=== PATIENT | female | born 1955 | race Hispanic/Latino ===

== ENCOUNTER → 2017-10-02 | Outpatient (CLI) | payer MEDICAID ==
--- NOTE | 2017-10-03 14:10 | RAD ---
EXAM DESCRIPTION: Knee,Left 2 or More Views CLINICAL HISTORY: PAIN COMPARISON: None. IMPRESSION: 3 views of the left knee show no evidence of acute fracture, focal bone destruction, or joint dislocation. Soft tissue calcifications are seen anterior to the knee. Mild narrowing of the medial tibiofemoral compartment and joint line osteophytes are seen consistent with mild to moderate osteoarthritic changes. Electronically signed by: Young Jean MD 10/03/2017 2:08 PM [facility]
== END | disposition home or self-care (01) ==
LOC: LAB.O 08:12
DX: E11.65 Type 2 diabetes mellitus with hyperglycemia (principal); M25.50 Pain in unspecified joint